=== PATIENT | male | born 2000 | race Caucasian/White ===

== ENCOUNTER 2021-02-21 11:10 | Inpatient (IN) | payer SELFPAY ==
[2021-02-21] MEDS ORDERED: Promethazine HCl 25 MG/ML VIAL ONE (11:54)
[2021-02-21] MEDS ORDERED: diphenhydrAMINE 50 MG/ML VIAL ONE (11:54)
[2021-02-21 12:03] LABS: #Lymphocytes 0.7 thou/uL (1.20-3.40); #Monocytes 1.2 thou/uL (0.11-0.59); #Neutrophils 9.9 thou/uL (1.40-6.50); %Eosinophils 0.3 % (0.0-10.0); %Lymphocytes 5.9 % (28.0-48.0); %Monocytes 10.4 % (0.0-4.0); %Neutrophils 83.4 % (31.0-61.0); Hemoglobin 17.1 g/dL (14.0-18.0); Mean Corpuscular HGB CONC 34.6 g/dL (32.0-36.0); Mean Corpuscular Hemoglobin 31.1 pg (25.0-35.0); Mean Corpuscular Volume 89.8 fL (78.0-98.0); Mean Platelet Volume 8.5 fL (7.4-10.4); Platelet Count 173 thou/uL (130-400); RBC Distribution Width 11.6 % (11.5-14.5); Red Blood Cell (RBC) Count 5.49 mill/uL (4.00-5.20); White Blood Cell (WBC) Count 11.9 thou/uL (4.8-10.8)
[2021-02-21 12:29] LABS: ALT (SGPT) 40 U/L (8-55); AST (SGOT) 156 U/L (10-45); Albumin 4.5 g/dL (3.5-5.0); Alkaline Phosphatase 98 U/L (50-130); Anion Gap 16 mmol/L (10-20); BUN (Urea Nitrogen) 8 mg/dL (8.4-21.0); Bilirubin, Total 1.2 mg/dL (0.2-1.2); CK (CPK) 1734 U/L (30-200); Calc. Creatinine Clearance 0 mL/min (70-130); Calcium 9.9 mg/dL (7.8-10.44); Carbon Dioxide 20 mmol/L (22-29); Chloride 104 mmol/L (98-107); Globulin 3.9 g/dL (2.4-3.5); Glucose 111 mg/dL (70-105); Lipase 44 U/L (8-78); Potassium 3.3 mmol/L (3.5-5.1); Protein, Total 8.4 g/dL (6.0-8.3); Sodium 137 mmol/L (136-145)
[2021-02-21] MEDS ORDERED: Aspirin Chewable 81 MG TAB ONE (12:54)
[2021-02-21] MEDS ORDERED: Potassium Chloride 20 MEQ TAB ONE (12:54)
[2021-02-21 13:05] LABS: CKMB 125.9 ng/mL (0-6.6)
[2021-02-21 13:11] LABS: Acetaminophen Less than 6.0 mcg/mL (10.0-30.0); Alcohol Less than 10 mg/dL (Less than 10); Salicylate Less than 8.0 mg/dL (15.0-30.0)
[2021-02-21] MEDS ORDERED: Lidocaine 1% (PF) 30 ML VIAL ONE (13:41)
[2021-02-21] MEDS ORDERED: Communication Order-Pharmacy CATH FS SCH (13:45)
[2021-02-21 14:40] LABS: SARS-CoV-2 NAA Rapid Test Not Detected (NotDetected)
[2021-02-21] MEDS ORDERED: Sodium Chloride 0.9% 200 ML IV PRN (14:40)
[2021-02-21] MEDS ORDERED: Acetaminophen/Codeine 30-300mg Tablet PO PRN ×2 (14:40)
[2021-02-21] MEDS ORDERED: Nitroglycerin 0.4 MG TAB (25 Tab Bottle) SL PRN (14:40)
[2021-02-21] MEDS ORDERED: Ibuprofen 600 MG TAB PO SCH (17:30)
[2021-02-21 18:34] LABS: Troponin I 37.321 ng/mL (< 0.028)
[2021-02-21] MEDS ORDERED: Enoxaparin Sodium 30 MG/0.3 ML SYRINGE SC SCH (18:45)
[2021-02-21] MEDS ORDERED: Lactated Ringer's 1,000 ML IV SCH (19:00)
[2021-02-21 22:14] LABS: Amphetamine Not Detected (NotDetected); Barbiturates Screen Not Detected (NotDetected); Benzodiazepine Screen Not Detected (NotDetected); Cocaine Metabolite Screen Not Detected (NotDetected); Methadone Not Detected (NotDetected); Methamphetamine Not Detected (NotDetected); Opiate Screen Not Detected (NotDetected); Oxycodone Screen Not Detected (NotDetected); Phencyclidine (PCP) Not Detected (NotDetected); THC/Cannabinoid Screen Not Detected (NotDetected); Tricyclic Screen Not Detected (NotDetected)
[2021-02-21 23:00] VITALS: BMI 23.0
[2021-02-21 23:06] LABS: Troponin I 28.396 ng/mL (< 0.028)
[2021-02-22 04:50] LABS: Hemoglobin 14.3 g/dL (14.0-18.0); Mean Corpuscular HGB CONC 34.5 g/dL (32.0-36.0); Mean Corpuscular Hemoglobin 31.5 pg (25.0-35.0); Mean Corpuscular Volume 91.3 fL (78.0-98.0); Platelet Count 168 thou/uL (130-400); RBC Distribution Width 11.7 % (11.5-14.5); Red Blood Cell (RBC) Count 4.53 mill/uL (4.00-5.20); White Blood Cell (WBC) Count 7.1 thou/uL (4.8-10.8)
[2021-02-22 05:08] LABS: ALT (SGPT) 32 U/L (8-55); AST (SGOT) 130 U/L (10-45); Albumin 3.5 g/dL (3.5-5.0); Alkaline Phosphatase 71 U/L (50-130); Anion Gap 10 mmol/L (10-20); BUN (Urea Nitrogen) 7 mg/dL (8.4-21.0); Bilirubin, Total 0.5 mg/dL (0.2-1.2); CK (CPK) 1074 U/L (30-200); Calc. Creatinine Clearance 152 mL/min (70-130); Calcium 8.6 mg/dL (7.8-10.44); Carbon Dioxide 24 mmol/L (22-29); Chloride 108 mmol/L (98-107); Globulin 2.9 g/dL (2.4-3.5); Glucose 113 mg/dL (70-105); Potassium 3.6 mmol/L (3.5-5.1); Protein, Total 6.4 g/dL (6.0-8.3); Sodium 138 mmol/L (136-145)
[2021-02-22 05:10] LABS: Band 19 % (5-11); Eosinophils 1 % (0-10); Lymphocytes 19 % (28-48); MDiff Complete? YES; Monocytes 14 % (0-4); Neutrophil 46 % (31-61); Reactive Lymphocytes 1 % (0-10)
[2021-02-22 05:25] LABS: Troponin I 30.431 ng/mL (< 0.028)
[2021-02-22] MEDS: Aspirin 81 mg Enteric Coated Tablet PO SCH (08:38)
[2021-02-22] MEDS ORDERED: Colchicine 0.6 MG TAB PO SCH (09:00)
[2021-02-22] MEDS ORDERED: Lisinopril 2.5 MG TAB PO SCH (09:00)
[2021-02-22] MEDS ORDERED: Morphine 2 MG/ML VIAL SLOW IVP PRN (09:57)
[2021-02-22] MEDS: Colchicine 0.6 MG TAB PO SCH ×2 (10:44→21:09)
[2021-02-22] MEDS: Lisinopril 2.5 MG TAB PO SCH (21:09)
[2021-02-23 05:23] LABS: Hemoglobin 15.2 g/dL (14.0-18.0); Mean Corpuscular HGB CONC 33.7 g/dL (32.0-36.0); Mean Corpuscular Hemoglobin 30.8 pg (25.0-35.0); Mean Corpuscular Volume 91.5 fL (78.0-98.0); Mean Platelet Volume 8.6 fL (7.4-10.4); Platelet Count 202 thou/uL (130-400); RBC Distribution Width 11.7 % (11.5-14.5); Red Blood Cell (RBC) Count 4.91 mill/uL (4.00-5.20); White Blood Cell (WBC) Count 6.4 thou/uL (4.8-10.8)
[2021-02-23 05:34] LABS: ALT (SGPT) 46 U/L (8-55); AST (SGOT) 126 U/L (10-45); Albumin 3.7 g/dL (3.5-5.0); Alkaline Phosphatase 76 U/L (50-130); Anion Gap 11 mmol/L (10-20); BUN (Urea Nitrogen) 7 mg/dL (8.4-21.0); Bilirubin, Total 0.5 mg/dL (0.2-1.2); CK (CPK) 736 U/L (30-200); Calc. Creatinine Clearance 138 mL/min (70-130); Calcium 9.1 mg/dL (7.8-10.44); Carbon Dioxide 25 mmol/L (22-29); Chloride 104 mmol/L (98-107); Globulin 3.3 g/dL (2.4-3.5); Glucose 97 mg/dL (70-105); Potassium 3.9 mmol/L (3.5-5.1); Sodium 136 mmol/L (136-145)
[2021-02-23 05:47] LABS: Band 20 % (5-11); Eosinophils 1 % (0-10); Lymphocytes 21 % (28-48); MDiff Complete? YES; Monocytes 8 % (0-4); Neutrophil 50 % (31-61)
[2021-02-23 06:27] LABS: Critical Call Chem Troponin I RESULT DECREASING; Troponin I 26.769 ng/mL (< 0.028)
[2021-02-23] MEDS: Aspirin 81 mg Enteric Coated Tablet PO SCH (08:28)
[2021-02-23] MEDS: Lisinopril 2.5 MG TAB PO SCH ×2 (08:28→20:11)
[2021-02-23] MEDS: Colchicine 0.6 MG TAB PO SCH ×2 (08:29→20:11)
[2021-02-24 05:11] LABS: Critical Call Chem Troponin I RESULT DECREASING
[2021-02-24] MEDS: Colchicine 0.6 MG TAB PO SCH (08:55)
[2021-02-24] MEDS: Lisinopril 2.5 MG TAB PO SCH (08:55)
[2021-02-24] MEDS: Aspirin 81 mg Enteric Coated Tablet PO SCH (08:55)
[2021-02-24 11:18] VITALS: BP 121/56; TEMP 97.8
== END 2021-02-24 14:20 | disposition home or self-care (01) | DRG 287 ==
LOC: ERS 11:10 → SURG A 14:02 → 2NO 18:42
PROVIDERS: ADMIT Internal Medicine Cardiovascular Disease; ATTEND Internal Medicine Cardiovascular Disease
PROC: 4A023N7 Measurement of Cardiac Sampling and Pressure, Left Heart, Percutaneous Approach (ICD-10-PCS; principal; 2021-02-21)
PROC: B2111ZZ Fluoroscopy of Multiple Coronary Arteries using Low Osmolar Contrast (ICD-10-PCS; 2021-02-21)
PROC: B2151ZZ Fluoroscopy of Left Heart using Low Osmolar Contrast (ICD-10-PCS; 2021-02-21)
DX: I31.9 Disease of pericardium, unspecified (principal); M62.82 Rhabdomyolysis; Z20.822 Contact with and (suspected) exposure to COVID-19; E87.6 Hypokalemia; R19.7 Diarrhea, unspecified; R63.0 Anorexia; E86.0 Dehydration; Z68.23 Body mass index [BMI] 23.0-23.9, adult; Z88.8 Allergy status to other drugs, medicaments and biological substances
CPT/HCPCS: 0240U; 36415; 71045; 80053; 80306; 80307; 82550; 82553; 83690; 83880; 84443; 84484; 85025; 85652; 86140; 87633; 93005; 93306; 93458; 96374; 96375; J1200; J1650; J2001; J2550

== ENCOUNTER 2022-07-30 15:07 | Emergency (ER) | payer SELFPAY | END 2022-07-30 18:58 | disposition home or self-care (01) | LOC: ERS 15:07 | DX: H60.501 Unspecified acute noninfective otitis externa, right ear (principal) | CPT/HCPCS: 99282 ==

== ENCOUNTER 2023-02-28 14:47 | Emergency (ER) | payer SELFPAY ==
[2023-02-28 15:34] LABS: #Eosinphils 0.3 thou/uL (0.0-0.7); #Monocytes 0.7 thou/uL (0.11-0.59); #Neutrophils 6.6 thou/uL (1.40-6.50); %Basophils 0.1 % (0.0-1.0); %Eosinophils 3.6 % (0.0-10.0); %Lymphocytes 10.1 % (21.0-51.0); %Neutrophils 77.8 % (42.0-75.0); Hematocrit 50.5 % (42.0-52.0); Hemoglobin 17.8 g/dL (14.0-18.0); Mean Corpuscular HGB CONC 35.2 g/dL (32.0-36.0); Mean Corpuscular Hemoglobin 30.1 pg (27.0-31.0); Mean Corpuscular Volume 85.4 fl (78.0-98.0); Mean Platelet Volume 9.7 fL (7.4-10.4); Platelet Count 233 10x3/uL (130-400); Red Blood Cell (RBC) Count 5.91 mill/uL (4.70-6.10); White Blood Cell (WBC) Count 8.4 10x3/uL (4.8-10.8)
[2023-02-28] MEDS ORDERED: Ondansetron PF 4 MG/2 ML Vial ONE (15:40)
[2023-02-28 15:58] LABS: ALT (SGPT) 36 U/L (8-55); AST (SGOT) 33 U/L (5-34); Albumin 4.9 g/dL (3.5-5.0); Alkaline Phosphatase 106 U/L (40-110); Anion Gap 14 mmol/L (10-20); BUN (Urea Nitrogen) 10 mg/dL (8.9-20.6); Bilirubin, Total 0.8 mg/dL (0.2-1.2); Calc. Creatinine Clearance 0 mL/min (70-130); Calcium 10.1 mg/dL (7.8-10.44); Carbon Dioxide 18 mmol/L (22-29); Chloride 108 mmol/L (98-107); Estimated GFR 88; Globulin 4.3 g/dL (2.4-3.5); Glucose 105 mg/dL (70-105); Lipase 33 U/L (8-78); Potassium 3.6 mmol/L (3.5-5.1); Protein, Total 9.2 g/dL (6.0-8.3); Sodium 136 mmol/L (136-145)
[2023-02-28 16:14] LABS: Bacteria/HPF None Seen HPF (None Seen); Bilirubin Negative (Negative); Blood, Urine Negative (Negative); CAUTI Indications for Culture Pelvic or flank pain; Clarity Clear (Clear); Glucose, Urine (Dipstick) Normal (Negative); Ketone, Urine Trace mg/dL (Negative); Leukocyte Negative Leu/uL (Negative); Nitrite Negative (Negative); Protein, Urine (Dipstick) 30 mg/dL (Neg-Trace); RBC/HPF 0-3 HPF (0-3); Specific Gravity, Urine 1.035 (1.002-1.036); Squamous Epithelial 0-3 HPF (0-3); Urobilinogen Normal mg/dL (Less than 2); WBC/HPF 0-3 HPF (0-3); pH, Urine 5.5 (5.0-9.0)
[2023-02-28 16:17] LABS: Urine Culture Reflex No No
[2023-02-28 16:19] LABS: SARS-CoV-2 NAA Rapid Test Not Detected (NotDetected)
== END 2023-02-28 17:35 | disposition home or self-care (01) ==
LOC: ERS 14:47
DX: R11.2 Nausea with vomiting, unspecified (principal); D19.7 Benign neoplasm of mesothelial tissue of other sites; B34.9 Viral infection, unspecified; I10 Essential (primary) hypertension; Z20.822 Contact with and (suspected) exposure to COVID-19
CPT/HCPCS: 80053; 81001; 83690; 85025; 96361; 96374; J2405

== ENCOUNTER 2025-03-30 17:54 | Emergency (ER) | payer OTHER ==
[2025-03-30 18:38] LABS: Bacteria/HPF None Seen HPF (None Seen); CAUTI Indications for Culture Pelvic or flank pain; Glucose, Urine (Dipstick) Normal (Negative); Leukocyte Negative Leu/uL (Negative); Protein, Urine (Dipstick) Negative (Neg-Trace); RBC/HPF None Seen HPF (0-3); Specific Gravity, Urine 1.016 (1.002-1.036); WBC/HPF None Seen HPF (0-3)
[2025-03-30 18:41] LABS: Urine Culture Reflex No No
[2025-03-30] MEDS ORDERED: Ondansetron PF 4 MG/2 ML Vial ONE (18:43)
[2025-03-30 18:50] LABS: #Basophils 0.03 10x3/uL (0.0-0.2); #Eosinophils 0.03 10x3/uL (0.0-0.7); #Monocytes 0.65 10x3/uL (0.11-0.59); #Neutrophils 7.01 10x3/uL (1.40-6.50); %Basophils 0.3 % (0.0-1.0); %Eosinophils 0.3 % (0.0-10.0); %Lymphocytes 13.8 % (21.0-51.0); %Monocytes 7.2 % (0.0-10.0); %Neutrophils 78.1 % (42.0-75.0); Hematocrit 46.6 % (42.0-52.0); Hemoglobin 16.1 g/dL (14.0-18.0); Mean Corpuscular Hemoglobin 29.2 pg (27.0-31.0); Mean Corpuscular Volume 84.6 fL (78.0-98.0); Platelet Count 245 10x3/uL (130-400); Red Blood Cell (RBC) Count 5.51 mill/uL (4.70-6.10); White Blood Cell (WBC) Count 8.99 10x3/uL (4.8-10.8)
[2025-03-30 19:28] LABS: ALT (SGPT) 58 U/L (Less than 45); AST (SGOT) 46 U/L (11-34); Albumin 4.8 g/dL (3.1-4.5); Alkaline Phosphatase 114 U/L (40-110); Anion Gap 18 mmol/L (10-20); BUN (Urea Nitrogen) 8 mg/dL (8.9-20.6); Bilirubin, Total 0.8 mg/dL (0.3-1.2); Calc. Creatinine Clearance 0 mL/min (70-130); Calcium 9.8 mg/dL (7.8-10.44); Carbon Dioxide 17 mmol/L (22-29); Chloride 106 mmol/L (98-107); Globulin 3.4 g/dL (2.4-3.5); Glucose 93 mg/dL (70-105); Lipase 30 U/L (8-78); Potassium 3.9 mmol/L (3.5-5.1); Sodium 137 mmol/L (136-145)
[2025-03-30] MEDS ORDERED: Mag-Al 1200 mg/1200 mg/30 ML UDCUP ONE (19:36)
[2025-03-30] MEDS ORDERED: Lidocaine Viscous Sol 2% 15 ml UD Cup ONE (19:37)
== END 2025-03-30 19:51 | disposition home or self-care (01) ==
LOC: ERS 17:54
DX: R11.2 Nausea with vomiting, unspecified (principal); I10 Essential (primary) hypertension
CPT/HCPCS: 71045; 80053; 81001; 83690; 84484; 85025; 93005; 96374; J2405